=== PATIENT | female | born 1950 | race Caucasian/White ===

== ENCOUNTER 2017-07-09 13:20 | Emergency (ER) | payer MEDICARE, BC ==
[2017-07-09] MEDS ORDERED: Sterile Water Irrigation 250 ML BOT ONE (13:25)
== END 2017-07-09 14:25 | disposition home or self-care (01) ==
LOC: MADERS 13:20
DX: T20.512A Corrosion of first degree of left ear [any part, except ear drum], initial encounter (principal); I10 Essential (primary) hypertension; E78.00 Pure hypercholesterolemia, unspecified; E11.9 Type 2 diabetes mellitus without complications
CPT/HCPCS: 99282